=== PATIENT | female | born 1980 | race Native Hawaiian/Other Pacific Islander ===

== ENCOUNTER 2017-03-30 17:55 | Emergency (ER) | payer BC, OTHER ==
[~2017-03-30] VITALS: Ht 170.2 cm; Wt 74.0 kg
[~2017-03-30 17:55] MED LIST: STEROID CREAM; VIST25CA PO
[2017-03-30 18:07] VITALS: BP 136/84; PULSE 86; RESP 18; TEMP 97.8; O2SAT 100
[2017-03-30] MEDS ORDERED: VIIB40TA PO (18:07)
[2017-03-30] MEDS ORDERED: AMBI10TA PO (18:07)
[2017-03-30] MEDS ORDERED: PROP40TA3 PO (18:07)
[2017-03-30] MEDS ORDERED: CLON1TAB PO (18:07)
[2017-03-30] MEDS ORDERED: BUPR100T4 PO (18:07)
[2017-03-30] MEDS ORDERED: SODIUM CHLORIDE 0.9% FLUSH 10 ML FLUSH IVF PRN (18:15)
[2017-03-30] MEDS ORDERED: ASPIRIN 81 MG CHEW TAB PO ONE (18:15)
[2017-03-30 18:16] VITALS: RESP 18; O2SAT 100
--- NOTE | 2017-03-30 18:16 | PD ---
HPI Chief Complaint: chest pain Time Seen by Provider: 18:13 Travel History International Travel<30 days: No Contact w/Intl Traveler<30days: No Traveled to known affect area: No History of Present Illness HPI This 36-year-old female says she was at work when she had an onset of shortness of breath and chest tightness. She says she was sweaty at that time. Chest tightness with greater just to the right sternum. She said had she has had one previous episode like this. Since it started this symptoms have been going on off and on. She has no history of heart disease. She stopped smoking a year ago. She says she has been exercising in his neck and chest pain when she exercises. She has no history of hypertension or diabetes she says her family history of heart disease. She does say she's been having heavy periods. There is no history of anemia PFSH Past Medical History Diminished Hearing: No Integumentary: Yes (ALOPESHIA) Social History Alcohol Use: Yes (OCCAS) Tobacco Use: Yes ( 1 PP WEEK) Substance Use: No Allergies-Medications (Allergen,Severity, Reaction): Coded Allergies: No Known Allergies (Verified , 03/30/17) Reported Meds & Prescriptions Reported Meds & Active Scripts Active Reported Viibryd (Vilazodone) 40 Mg Tab 40 Mg PO DAILY Clonazepam 1 Mg Tab 1 Mg PO BID Ambien (Zolpidem Tartrate) 10 Mg Tab 10 Mg PO HS PRN Bupropion HCl 100 Mg Tab 200 Mg PO HS Propranolol (Propranolol HCl) 40 Mg Tab 40 Mg PO Q12HR Review of Systems General / Constitutional: No: Fever, Chills Eyes: No: Diploplia, Blurred Vision HENT: No: Headaches, Vertigo Cardiovascular: Positive: Chest Pain or Discomfort, No: Palpitations Respiratory: Positive: Shortness of Breath, No: Wheezing Gastrointestinal: No: Vomiting, Diarrhea Genitourinary: No: Urgency, Frequency Musculoskeletal: No: Arthralgias Skin: No Rash, No Itching Neurologic: No: Weakness Psychiatric: Positive: Anxiety Hematologic/Lymphatic: No: Easy Bruising Physical Exam Narrative GENERAL: [-] SKIN: Focused skin assessment warm/dry. HEAD: Atraumatic. Normocephalic. EYES: Pupils equal and round. No scleral icterus. No injection or drainage. ENT: No nasal bleeding or discharge. Mucous membranes pink and moist. NECK: Trachea midline. No JVD. CARDIOVASCULAR: Regular rate and rhythm. No murmur appreciated. RESPIRATORY: No accessory muscle use. Clear to auscultation. Breath sounds equal bilaterally. GASTROINTESTINAL: Abdomen soft, non-tender, nondistended. Hepatic and splenic margins not palpable. MUSCULOSKELETAL: No obvious deformities. No clubbing. No cyanosis. No edema. NEUROLOGICAL: Awake and alert. No obvious cranial nerve deficits. Motor grossly within normal limits. Normal speech. PSYCHIATRIC: She is anxious; insight and judgment normal. Data Data Last Documented VS Vital Signs Date Time Temp Pulse Resp B/P Pulse Ox O2 Delivery O2 Flow Rate FiO2 03/30/17 19:09 69 18 129/70 99 Room Air 03/30/17 18:07 97.8 Orders Electrocardiogram (03/30/17 18:13) Basic Metabolic Panel (Bmp) (03/30/17 18:13) Complete Blood Count With Diff (03/30/17 18:13) Magnesium (Mg) (03/30/17 18:13) Prothrombin Time / Inr (Pt) (03/30/17 18:13) Act Partial Throm Time (Ptt) (03/30/17 18:13) Troponin I (03/30/17 18:13) Chest, Single Ap (03/30/17 18:13) Ecg Monitoring (03/30/17 18:13) Iv Access Insert/Monitor (03/30/17 18:13) Oximetry (03/30/17 18:13) Oxygen Administration (03/30/17 18:13) Aspirin Chew (Aspirin Chew) (03/30/17 18:15) Sodium Chloride 0.9% Flush (Ns Flush) (03/30/17 18:15) Labs Laboratory Tests Test 03/30/17 18:35 White Blood Count 4.5 TH/MM3 Red Blood Count 4.28 MIL/MM3 Hemoglobin 9.0 GM/DL Hematocrit 28.5 % Mean Corpuscular Volume 66.7 FL Mean Corpuscular Hemoglobin 21.0 PG Mean Corpuscular Hemoglobin 31.5 % Concent Red Cell Distribution Width 18.4 % Platelet Count 308 TH/MM3 Mean Platelet Volume 8.1 FL Neutrophils (%) (Auto) 45.2 % Lymphocytes (%) (Auto) 42.1 % Monocytes (%) (Auto) 10.9 % Eosinophils (%) (Auto) 0.1 % Basophils (%) (Auto) 1.7 % Neutrophils # (Auto) 2.0 TH/MM3 Lymphocytes # (Auto) 1.9 TH/MM3 Monocytes # (Auto) 0.5 TH/MM3 Eosinophils # (Auto) 0.0 TH/MM3 Basophils # (Auto) 0.1 TH/MM3 CBC Comment AUTO DIFF Prothrombin Time 10.7 SEC Prothromb Time International 1.0 RATIO Ratio Activated Partial 23.1 SEC Thromboplast Time Sodium Level 138 MEQ/L Potassium Level 4.3 MEQ/L Chloride Level 104 MEQ/L Carbon Dioxide Level 22.7 MEQ/L Anion Gap 11 MEQ/L Blood Urea Nitrogen 15 MG/DL Creatinine 0.68 MG/DL Estimat Glomerular Filtration 98 ML/MIN Rate Random Glucose 92 MG/DL Calcium Level 9.5 MG/DL Magnesium Level 2.4 MG/DL Troponin I LESS THAN 0.02 NG/ML MDM Medical Decision Making Medical Screen Exam Complete: Yes Emergency Medical Condition: Yes Medical Record Reviewed: Yes Differential Diagnosis Differential includes coronary artery disease, reflux, anxiety Narrative Course EKG shows normal sinus rhythm. Chest x-ray is negative. Troponin is normal. I recommended to the patient that we admit her to the chest pain center but she is quite insistent on being released. She says she will follow-up with a direct mail manager. I have advised her she needs to return if her symptoms return. She is anemic with hypochromic microcytic indices most likely due to iron deficiency Diagnosis Primary Impression: Chest pain Qualified Code: R07.9 - Chest pain, unspecified type Additional Instructions: Take aspirin daily. Take iron supplement Disposition: DISCHARGE HOME Condition: Stable Niranjan Reilly MD March 30, 2017 18:16
--- NOTE | 2017-03-30 18:34 | RADHPO ---
EXAM DATE/TIME: 03/30/2017 18:26 [facility] COMPARISON: No previous studies available for comparison. INDICATIONS : Heart palpitations MEDICAL HISTORY : Depression and Anxiety. SURGICAL HISTORY : None. ENCOUNTER: Initial ACUITY: 1 day PAIN SCORE: 0/10 LOCATION: Bilateral chest FINDINGS: A single view of the chest demonstrates the lungs to be symmetrically aerated without evidence of mas s, infiltrate or effusion. The cardiomediastinal contours are unremarkable. Osseous structures are intact. CONCLUSION: No acute disease. Hong Vazquez MD on March 30, 2017 at 18:32 Board Certified Radiologist. This report was verified electronically.
[2017-03-30 18:44] LABS: BASOPHIL # 0.1 TH/MM3 (0-0.2); BASOPHIL % 1.7 % (0.0-2.0); EOSINOPHIL % 0.1 % (0.0-4.0); HEMATOCRIT 28.5 % (35.0-46.0); LYMPH % 42.1 % (9.0-44.0); LYMPHOCYTE # 1.9 TH/MM3 (1.0-4.8); MEAN CELL VOLUME 66.7 FL (80.0-100.0); MEAN CORPUSCULAR HGB CONC 31.5 % (32.0-36.0); MONO % 10.9 % (0.0-8.0); NEUT % 45.2 % (16.0-70.0); PLATELET COUNT 308 TH/MM3 (150-450); RED BLOOD COUNT 4.28 MIL/MM3 (4.00-5.30); RED CELL DISTRIBUTION WIDTH 18.4 % (11.6-17.2); WHITE BLOOD COUNT 4.5 TH/MM3 (4.0-11.0)
[2017-03-30 18:50] LABS: HEMO FLAGS AUTO DIFF
[2017-03-30 18:51] LABS: CHLORIDE 104 MEQ/L (98-107); POTASSIUM 4.3 MEQ/L (3.5-5.1); SODIUM (NA) 138 MEQ/L (136-145)
[2017-03-30 18:54] LABS: ANION GAP 11 MEQ/L (5-15); APTT (PATIENT) 23.1 SEC (24.3-30.1); BICARBONATE 22.7 MEQ/L (21.0-32.0); BLOOD UREA NITROGEN 15 MG/DL (7-18); MAGNESIUM 2.4 MG/DL (1.5-2.5); PROTHROMBIN TIME - PATIENT 10.7 SEC (9.8-11.6)
[2017-03-30 18:58] LABS: GLOMERULAR FILTRATION RATE 98 ML/MIN (>89)
[2017-03-30 19:09] VITALS: BP 129/70; PULSE 69; RESP 18; O2SAT 99
[2017-03-30] MEDS ORDERED: FERR1TAB36 PO (19:25)
[2017-03-30 19:26] LABS: KERATOCYTES 1+ (NORMAL); OVALOCYTES 1+ (NORMAL); SCAN/DIFF AUTO DIFF CONFIRMED
[2017-03-30 19:33] VITALS: BP 110/86; PULSE 62; RESP 18; TEMP 97.8; O2SAT 100
[2017-03-30 19:46] VITALS: BP 110/82
--- NOTE | 2017-03-31 15:28 | EKG ---
Date Performed: 03/30/2017 Time Performed: 18:11:48 PTAGE: 36 years EKG: Sinus bradycardia Normal ECG except for rate NO PREVIOUS TRACING DOCTOR: Ben Matias Interpretating Date/Time 03/31/2017 15:24:13
== END 2017-03-30 19:47 | disposition home or self-care (01) ==
LOC: PHED 17:55
DX: R07.89 Other chest pain (principal); R06.02 Shortness of breath; R00.1 Bradycardia, unspecified
CPT/HCPCS: 71010; 80048; 83735; 84484; 85025; 85610; 85730; 93005